=== PATIENT | female | born 1995 | race Caucasian/White ===

== ENCOUNTER 2019-12-28 13:24 | Emergency (ER) | payer BC, OTHER ==
[2019-12-29 12:51] LABS: SARS-CoV-2 MS2 Positive; SARS-CoV-2 N Gene Positive; SARS-CoV-2 S Gene Positive; SARS-CoV-2 orf1ab Positive
== END 2019-12-28 14:35 | disposition home or self-care (01) ==
LOC: ERS 13:24
DX: U07.1 COVID-19 (principal); L25.9 Unspecified contact dermatitis, unspecified cause
CPT/HCPCS: 87635; 99283; U0003